=== PATIENT | male | born 1955 ===

== ENCOUNTER 2018-11-09 16:52 | Emergency (ER) | payer SELFPAY ==
[~2018-11-09] VITALS: Ht 167.6 cm; Wt 52.4 kg
[2018-11-09 17:01] VITALS: BP 130/72
== END 2018-11-09 17:52 | disposition home or self-care (01) ==
LOC: ER 16:53
DX: S61.412A Laceration without foreign body of left hand, initial encounter (principal); X58.XXXA Exposure to other specified factors, initial encounter; Y93.89 Activity, other specified; Y92.89 Other specified places as the place of occurrence of the external cause; Y99.8 Other external cause status
CPT/HCPCS: 99283